=== PATIENT | male | born 1945 | race Caucasian/White ===

== ENCOUNTER 2024-12-29 12:26 | Emergency (ER) | payer OTHER, SELFPAY ==
[2024-12-29 12:36] VITALS: BP 173/78
[2024-12-29 12:51] VITALS: BMI 27.4
--- NOTE | 2024-12-29 15:39 | ED.GENMED ---
History of Present Illness
<Juan Sanders MD, Resident - Last Filed: 12/29/24 18:35>
General
Chief Complaint: Heart Rate Problem
Source: patient and family
Time Seen by Provider: 12/29/24 15:10
History of Present Illness
History of Present Illness:
Patient is a 79-year-old male with PMH of multiple personality disorder, bipolar disorder on ziprasidone, CAD, HTN, HLD, diabetes, and SVT who presents to the [facility] ED with 2 weeks of confusion above patient's baseline. Patient fell at home 3
weeks ago after he became dizzy with vomiting over. He fell backwards and struck his head on the floor. No LOC. No blood thinners. No numbness, weakness, vision changes, or dysarthria. Patient is mildly confused at baseline, but he has become
increasingly confused over the past 2 weeks. He lives with his daughter who states that he has had increased difficulty with ADLs, such as dressing himself. Patient states he has heard increasing voices in his head. Patient also notes mild
shortness of breath with exertion over the last couple weeks. No chest pain, cough, wheezing, palpitations, abdominal pain, or N/V/D. No recent illnesses or travel. Due to recent confusion, patient with to the [facility] any. At the
[place], patient was found to have an EKG abnormality, which prompted referral to [facility]. Patient noted to be in atrial flutter with 4:1 conduction on presentation to the ED. No current symptoms other than continued confusion. Patient had
SVT in the past, which the daughter says was treated with electrical cardioversion. Chart review also notes that the patient's SVT has responded to adenosine in the past.
Past History
<Juan Sanders MD, Resident - Last Filed: 12/29/24 18:35>
Past History
ED Past Medical History: CAD, HTN, Hypercholesterolemia, NIDDM, [place] and Other
ED Past Surgical History: Appendectomy and Orthopedic
Social History
Tobacco: Non-smoker
Alcohol: None
Personal:
Living: with family
Employment: Retired
Review of Systems
<Juan Sanders MD, Resident - Last Filed: 12/29/24 18:35>
Review of Systems
Constitutional: Reports no symptoms
Respiratory: Reports trouble breathing (Mild with exertion); Denies cough
Cardiac: Denies chest pain, diaphoresis, palpitations or syncope
ABD/GI: Denies abdominal pain, nausea, vomiting or diarrhea
: Reports no symptoms
Neurological: Reports dizzy and other (No vision changes); Denies headache, weakness or numbness
Phy Exam
<Juan Sanders MD, Resident - Last Filed: 12/29/24 18:35>
Physical Exam
Physical Exam:
General: NAD. Conversant.
Neuro: A&O x 2. Disoriented to time. Sensory intact, strength 5/5 lower extremities. No drift on arm or leg raise. CN II through XII intact. EOMI. Visual sullivan intact.
CV: RRR. S1, S2 noted. No M/R/G. No LE edema.
Pulm: CTAB. No wheezes or crackles. No cyanosis.
GI: Soft, nontender. Nondistended.
Psych: Calm.
Course
<Juan Sanders MD, Resident - Last Filed: 12/29/24 18:35>
Orders/Labs/Results
Orders:
Orders
12/29/24 12:27
Electrocardiogram (*1) Urgent
Reason for Study: Palpitations
EKG- Treatment ONCE
12/29/24 15:01
Electrocardiogram (*1) Urgent
Reason for Study: Abnormal EKG
EKG- Treatment ONCE
12/29/24 15:47
CMP [Comprehensive Metabolic Panel] Urgent
Complete Blood Count/With Diff Urgent
12/29/24 16:27
Cervical Spine wo Contrast CT [CT Cervical Spine W/o Iv Contr] Urgent
Comment:
Reason For Exam: Fall w/ head strike 3 wks ago
Head wo Contrast CT [CT Head W/o Iv Contrast] Urgent
Comment:
Reason For Exam: Fall w/ head strike 3 wks ago
12/29/24 17:39
Urinalysis Reflex To Culture Urgent
Date Specimen was Collected: 12/29/24
Time Specimen was Collected: 17:25
Urine Microscopic Reflex Cult Urgent
Urine Culture Urgent
JOSH Source: U
Specimen Description:
Date Specimen was Collected: 12/29/24
Time Specimen was Collected: 17:25
Abnormal Lab Results
12/29/24 12/29/24
15:47 17:39
MCHC 31.8 L g/dL
(33.0-37.0)
RDW 14.6 H %
(11.5-14.5)
MPV 10.9 H fL
(7.4-10.4)
Abs Immat Gran (auto) 0.1 H 10^3/uL
(0-0.05)
Absolute Neuts (auto) 7.9 H 10^3/uL
(1.4-6.5)
Absolute Monos (auto) 0.8 H 10^3/uL
(0.1-0.6)
Neutrophils % 77.0 H %
(42.2-75.2)
Lymphocytes % 14.4 L %
(20.5-51.1)
Sodium 134 L mmol/L
(135-145)
BUN 22 H mg/dl
(9-20)
Glucose 160 H mg/dl
(70-99)
Urine Urobilinogen 2+ A
(Neg - 1+)
Urine Bacteria (Reflex) Many A
(Negative)
Urine Albumin (Reflex) 2+ A
(Neg - Trace)
12/29/24 15:47
12/29/24 15:47
Vital Signs
Initial and Last Documented VS:
Initial Vital Signs
Temp Pulse Resp BP Pulse Ox
98.4 F 61 16 173/78 96
12/29/24 12:36 12/29/24 12:36 12/29/24 12:36 12/29/24 12:36 12/29/24 12:36
Last Documented Vital Signs
Temp Pulse Resp BP Pulse Ox
98.4 F 60 12 149/85 94
12/29/24 12:36 12/29/24 16:15 12/29/24 16:15 12/29/24 15:48 12/29/24 16:01
<Jerry Lira, DO - Last Filed: 12/29/24 16:43>
Orders/Labs/Results
Orders:
Orders
12/29/24 12:27
Electrocardiogram (*1) Urgent
Reason for Study: Palpitations
EKG- Treatment ONCE
12/29/24 15:01
Electrocardiogram (*1) Urgent
Reason for Study: Abnormal EKG
EKG- Treatment ONCE
12/29/24 15:47
CMP [Comprehensive Metabolic Panel] Urgent
Complete Blood Count/With Diff Urgent
12/29/24 16:27
Cervical Spine wo Contrast CT [CT Cervical Spine W/o Iv Contr] Urgent
Comment:
Reason For Exam: Fall w/ head strike 3 wks ago
Head wo Contrast CT [CT Head W/o Iv Contrast] Urgent
Comment:
Reason For Exam: Fall w/ head strike 3 wks ago
12/29/24 17:39
Urinalysis Reflex To Culture Urgent
Date Specimen was Collected: 12/29/24
Time Specimen was Collected: 17:25
Urine Microscopic Reflex Cult Urgent
Urine Culture Urgent
JOSH Source: U
Specimen Description:
Date Specimen was Collected: 12/29/24
Time Specimen was Collected: 17:25
Abnormal Lab Results
12/29/24 12/29/24
15:47 17:39
MCHC 31.8 L g/dL
(33.0-37.0)
RDW 14.6 H %
(11.5-14.5)
MPV 10.9 H fL
(7.4-10.4)
Abs Immat Gran (auto) 0.1 H 10^3/uL
(0-0.05)
Absolute Neuts (auto) 7.9 H 10^3/uL
(1.4-6.5)
Absolute Monos (auto) 0.8 H 10^3/uL
(0.1-0.6)
Neutrophils % 77.0 H %
(42.2-75.2)
Lymphocytes % 14.4 L %
(20.5-51.1)
Sodium 134 L mmol/L
(135-145)
BUN 22 H mg/dl
(9-20)
Glucose 160 H mg/dl
(70-99)
Urine Urobilinogen 2+ A
(Neg - 1+)
Urine Bacteria (Reflex) Many A
(Negative)
Urine Albumin (Reflex) 2+ A
(Neg - Trace)
12/29/24 15:47
12/29/24 15:47
Vital Signs
Initial and Last Documented VS:
Initial Vital Signs
Temp Pulse Resp BP Pulse Ox
98.4 F 61 16 173/78 96
12/29/24 12:36 12/29/24 12:36 12/29/24 12:36 12/29/24 12:36 12/29/24 12:36
Last Documented Vital Signs
Temp Pulse Resp BP Pulse Ox
98.4 F 60 12 149/85 94
12/29/24 12:36 12/29/24 16:15 12/29/24 16:15 12/29/24 15:48 12/29/24 16:01
<Juan Sanders MD, Resident - Last Filed: 12/29/24 18:35>
MDM/Problems Addressed
Differential Diagnosis Includes:
Subdural hematoma
Epidural hematoma
Arrhythmia
Stroke/TIA
Electrolyte abnormality
Infection
MDM/Problems Addressed:
Assessment: Patient is 79-year-old male with PMH of multiple personality disorder, bipolar disorder, CAD, HTN, HLD, and SVT who presents with 2 weeks of increasing confusion, increased voices in his head, and mild shortness of breath on exertion in
the setting of a fall with head strike on back of his head 3 weeks ago. No LOC or blood thinners. Patient had EKG abnormality at the [facility] this morning, which prompted presentation to [facility]. Hypertensive (173/78), otherwise AFVSS.
EKG shows atrial flutter on presentation. Repeat EKG 3 hours later shows sinus bradycardia. No current symptoms. CBC, CMP, CT C-spine, CT head, UA show no clinically significant findings. Suspect nonemergent psychiatric etiology for recent
confusion. Patient counseled to follow up with his psychiatrist and PCP in outpatient setting.
Plan:
#Confusion
#Arrhythmia (resolved)
EKG
Labs: CBC, CMP, UA
Imaging: CT head w/o contrast, CT c-spine w/o contrast
<Juan Sanders MD, Resident - Last Filed: 12/29/24 18:35>
*Pulse Oximetry
SaO2: 95
Oxygen Mode of Delivery: Room air
Patient hypoxic: yes
*Critical Care Note
Total Time (30-74mins, 75-104mins- exclusive of procedures): Not Applicable
ED Attending Note
<Juan Sanders MD, Resident - Last Filed: 12/29/24 18:35>
-
Portions of this chart may have been created with voice recognition software.� Occasional wrong word or��sound alike� substitutions may have occurred due to the inherent limitations of voice recognition software.
<Jerry Lira, DO - Last Filed: 12/29/24 16:43>
ED Attending Note
Patient seen and examined by attending physician: Yes
ED Attending Note:
Seen with resident examined independently well-appearing male mentally ill multiple personality disorder, sounds like paroxysmal A-fib diabetes, presents with subacute onset of [facility] due to tachycardia looks like he
was in a flutter converted on its own, here he is calm cooperative grossly nonfocal neurologic exam not anticoagulated does take aspirin apparently had a fall would like to check CT of the head cervical spine to rule out any occult trauma and then
walk the patient, parent lives with his daughter
Discharge Plan
Departure
Patient Disposition: Home (Routine Discharge)
Date of Disposition: 12/29/24
Time of Disposition: 18:31
Patient with high blood pressure during this ER visit?: Yes
Condition: Good
Covid-19: Not Applicable
Discharge Problem:
Arrhythmia
Instructions: Atrial flutter (DC), BLOOD PRESSURE
Prescriptions:
No Action
pantoprazole 40 MG tablet,delayed release (DR/EC)
40 mg PO DAILY
trazodone 100 MG tablet
100 mg PO HS
ziprasidone HCl 60 MG capsule
60 mg PO HS
losartan 50 MG tablet
50 mg PO DAILY
gabapentin [Neurontin] 600 MG tablet
600 mg PO DAILY
diltiazem HCl 180 MG capsule,extended release 24hr
180 mg PO DAILY
prazosin 1 MG capsule
1 mg PO HS
terazosin 1 MG capsule
4 mg PO HS
magnesium oxide [MagOx] 400 MG tablet
400 mg PO DAILY
tamsulosin 0.4 MG capsule
0.4 mg PO HS
aspirin 81 MG tablet,chewable
81 mg PO DAILY
finasteride 5 MG tablet
5 mg PO DAILY
glipizide 5 MG tablet
5 mg PO DAILY
rosuvastatin [Crestor] 40 MG tablet
40 mg PO DAILY
cholecalciferol (vitamin D3) 1,000 UNITS tablet
1,000 units PO DAILY
tramadol [Ultram] 50 MG tablet
50 mg PO Q8H PRN (Reason: Mod sev pain) Qty: 14 0RF
cefdinir [Omnicef] 300 MG capsule
300 mg PO BID Qty: 6 0RF
Referrals:
Juan Jj MD [Family Provider, Family Practice]
Activity Restrictions/Additional Instructions:
Return to ED if you develop chest pain, shortness of breath, increasing confusion, or any other symptoms worrisome to you
Follow-up with PCP and psychiatrist in the outpatient setting
Interventions
Interventions:
*Risk Screen - Suicide Last Done: 12/29/24 12:36
*General Assessment Last Done: 12/29/24 12:51
*Neglect/Abuse Screening Last Done: 12/29/24 12:36
*ED- Fall Risk Assessment Last Done: 12/29/24 12:51
*ED COVID-19 Vaccine History Last Done: 12/29/24 12:51
*ED Influenza Vaccine History Last Done: 12/29/24 16:18
ED- Cardiac Assessment Last Done: 12/29/24 16:26
ED- Pulmonary Assessment Last Done: 12/29/24 16:26
Discharge Date and Time
Print Language: LAO
[2024-12-29 15:48] VITALS: BP 149/85
[2024-12-29 15:57] LABS: Hematocrit 43.7 % (39.0-52.0); Hemoglobin 13.9 g/dL (13.0-18.0); Mean Corp Hgb Conc. 31.8 g/dL (33.0-37.0); Mean Corpuscular Volume 91.0 fL (80.0-94.0); Nucleated Red Blood Cells % 0 % (-); Platelet Count 175 10^3/uL (130-400); Red Cell Dist. Width 14.6 % (11.5-14.5)
[2024-12-29 16:12] LABS: ALT (SGPT) 16 U/L (0-50); AST (SGOT) 18 U/L (17-59); Albumin 4.2 g/dl (3.5-5.0); Alkaline Phosphatase 74 U/L (38-126); Blood Urea Nitrogen 22 mg/dl (9-20); Calcium 9.4 mg/dl (8.4-10.2); Carbon Dioxide 27 mmol/L (22-30); Chloride 102 mmol/L (98-107); Estimated Creatinine Clearance 53 ml/min; Glucose 160 mg/dl (70-99); Potassium 4.4 mmol/L (3.5-5.1); Sodium 134 mmol/L (135-145); Total Protein 7.0 g/dl (6.3-8.2); eGFR > 60.00
[2024-12-29 17:59] LABS: Urine Character Slightly Cloudy (Clear)
[2024-12-29 18:09] LABS: Urine Squamous Cell 0-2 /LPF (Few)
[2024-12-29 18:11] LABS: Urine Red Blood Cell 0-2 /HPF (0-2); Urine White Cell 0-2 /HPF (0-5)
[2024-12-29 18:56] VITALS: BP 158/98
== END 2024-12-29 18:50 | disposition home or self-care (01) ==
LOC: EMR 12:26
PROVIDERS: Emergency Medicine; EMERGENCY PHYSICIAN Emergency Medicine; FAMILY PHYSICIAN Family Medicine
DX: I49.9 Cardiac arrhythmia, unspecified (principal); E11.9 Type 2 diabetes mellitus without complications; I25.10 Atherosclerotic heart disease of native coronary artery without angina pectoris; I10 Essential (primary) hypertension; E78.00 Pure hypercholesterolemia, unspecified; I25.2 Old myocardial infarction; F31.9 Bipolar disorder, unspecified; F44.81 Dissociative identity disorder; Z79.84 Long term (current) use of oral hypoglycemic drugs; Z79.82 Long term (current) use of aspirin
CPT/HCPCS: 99284; 70450; 72125; 80053; 81003; 81015; 85025; 87086; 93005